=== PATIENT | male | born 1965 | race Two or more races ===

== ENCOUNTER 2024-01-03 10:04 | Emergency (ER) | payer MEDICAID ==
[~2024-01-03] VITALS: Ht 172.7 cm; Wt 107.0 kg
[2024-01-03 10:27] VITALS: BP 143/96; PULSE 97; RESP 16; TEMP 98.4; O2SAT 95
[2024-01-03] MEDS ORDERED: CEPH500C PO (10:51)
[2024-01-03] MEDS: LIDOCAINE 1% HCL (LOCAL ANESTH.) INJ 20ML MDV IJ ONE (10:52)
[2024-01-03] MEDS ORDERED: TETANUS-DIPTH-ACEL PERTUSSIS 0.5ML SYR Tdap IM ONE (11:00)
== END 2024-01-03 10:58 | disposition home or self-care (01) ==
LOC: ER 10:04
DX: S81.811A Laceration without foreign body, right lower leg, initial encounter (principal); W26.8XXA Contact with other sharp object(s), not elsewhere classified, initial encounter; Y93.89 Activity, other specified; Y92.89 Other specified places as the place of occurrence of the external cause; Y99.8 Other external cause status
CPT/HCPCS: 12004; 90471